=== PATIENT | female | born 1995 | race Hispanic/Latino ===

== ENCOUNTER 2016-09-15 01:42 | Inpatient (IN) ==
[2016-09-15] MEDS ORDERED: PEPCID PO ONE (02:36)
[2016-09-15] MEDS ORDERED: REGLAN PO ONE (02:36)
[2016-09-15] MEDS ORDERED: ZOFRAN IV PRN (02:36)
[2016-09-15] MEDS ORDERED: PEPCID PO PRN (02:36)
[2016-09-15] MEDS ORDERED: LR 1,000 ML IV SCH (02:36)
[2016-09-15] MEDS ORDERED: TYLENOL PO PRN (02:36)
[2016-09-15] MEDS ORDERED: STADOL IV PRN (02:36)
[2016-09-15] MEDS ORDERED: PEPCID IV PRN (02:36)
[2016-09-15] MEDS ORDERED: KEFZOL 1 GM/D5W 1 GM/50 ML IVPB IV PRN (02:36)
[2016-09-15 02:40] LABS: MANUAL DIFF NEEDED? NO
[2016-09-15 02:42] LABS: URINE SOURCE VOIDED
[2016-09-15] MEDS ORDERED: SODIUM CHLORIDE 0.9% INJ SCH (02:45)
[2016-09-15 02:48] LABS: BASO% 0.3 % (0.0-0.8); EOS# 0.05 X1000 (0.0-0.7); EOS% 0.5 % (0.0-10.0); HEMATOCRIT 30.6 % (37.0-47.0); IMM GRAN# 0.09 X1000 (0.0-0.04); IMM GRAN% 0.8 % (0.0-0.5); LYMPH# 2.32 X1000 (1.2-3.4); LYMPH% 21.1 % (20.5-51.1); MCH 25.2 PG (27-31); MCHC 32.7 g/dL (33-37); MCV 77.1 FL (81-99); MONO# 0.84 X1000 (0.11-0.59); MONO% 7.7 % (1.7-9.3); MPV 10.2 FL (7.4-10.4); NEUT% 69.6 % (42.2-75.2); PLT 293 X1000 (130-400); RBC 3.97 XMIL (4.2-5.4)
[2016-09-15 02:54] LABS: BILIRUBIN URINE NEGATIVE (NEGATIVE); BLOOD URINE 2+ (NEGATIVE); CLARITY CLEAR (CLEAR); COLOR YELLOW; GLUCOSE URINE NEGATIVE (NEGATIVE); LEUKOCYTES URINE NEGATIVE (NEGATIVE); NITRITE URINE NEGATIVE (NEGATIVE); PROTEIN URINE NEGATIVE (NEGATIVE); UR AMPHETAMINES QUAL NONE DETECTED (NONE DETECT); UR BARBITUATES QUAL NONE DETECTED (NONE DETECT); UR BENZODIAZEPIN QUAL NONE DETECTED (NONE DETECT); UR CANNABINOIDS QUAL NONE DETECTED (NONE DETECT); UR COCAINE QUAL NONE DETECTED (NONE DETECT); UR MDMA QUAL NONE DETECTED (NONE DETECT); UR METHADONE QUAL NONE DETECTED (NONE DETECT); UR METHAMPHETAMINE QUAL NONE DETECTED (NONE DETECT); UR OPIATES QUAL NONE DETECTED (NONE DETECT); UR OXYCODONE QUAL NONE DETECTED (NONE DETECT); UR PCP QUAL NONE DETECTED (NONE DETECT); UR TCA QUAL NONE DETECTED (NONE DETECT); UROBILINOGEN URINE NORMAL
[2016-09-15] MEDS ORDERED: SODIUM CHLORIDE 0.9% INJ PRN (03:24)
[2016-09-15] MEDS ORDERED: PHENERGAN IV PRN (03:24)
[2016-09-15 03:38] LABS: RAPID HIV PRESUMPTIVE NEGATIVE; RPR NON-REACTIVE (NONREACTIVE)
[2016-09-15] MEDS ORDERED: AMPICILLIN 2 GM/NS 2 GM/100 ML IVPB IV ONE (04:00)
[2016-09-15] MEDS ORDERED: PITOCIN 30 UNITS/LR 30 UNITS/500 ML IV.SOLN IV SCH (07:00)
[2016-09-15] MEDS ORDERED: AMPICILLIN 1 GM/NS 1 GM/50 ML IVPB IV SCH (08:00)
[2016-09-15] MEDS ORDERED: FENTANYL-BUPIV-NS 2 MCG-0.1% 200 ML EPIDURAL PRN (08:14)
[2016-09-15] MEDS ORDERED: XYLOCAINE-MPF 1% INJ ONE (08:15)
[2016-09-15] MEDS ORDERED: PERCOCET-10 PO PRN (12:03)
[2016-09-15] MEDS ORDERED: XYLOCAINE-MPF 1% INJ PRN (12:03)
[2016-09-15] MEDS ORDERED: HYDROXYZINE IM PRN (12:03)
[2016-09-15] MEDS ORDERED: BOOSTRIX VACCINE IM ONE (12:03)
[2016-09-15] MEDS ORDERED: AMBIEN PO PRN (12:03)
[2016-09-15] MEDS ORDERED: PITOCIN 30 UNITS/LR 30 UNITS/500 ML IV.SOLN IV ONE (12:03)
[2016-09-15] MEDS ORDERED: HYDROXYZINE PO PRN (12:03)
[2016-09-15] MEDS ORDERED: M-M-R II VACCINE SUBQ ONE (12:03)
[2016-09-15] MEDS ORDERED: CYTOTEC PO PRN (12:03)
[2016-09-15] MEDS ORDERED: PERI MEDS (DERMOPLAST/NUPERCAINAL/TUCKS) MISC PRN (12:03)
[2016-09-15] MEDS ORDERED: PITOCIN 20 UNITS/LR 20 UNITS/1,000 ML IV.SOLN IV SCH (12:03)
[2016-09-15] MEDS ORDERED: MINERAL OIL PO PRN (12:03)
[2016-09-15] MEDS ORDERED: PITOCIN IM PRN (12:03)
[2016-09-15] MEDS ORDERED: BENADRYL PO PRN (12:03)
[2016-09-15] MEDS ORDERED: BENADRYL IV PRN (12:03)
[2016-09-15] MEDS ORDERED: PERCOCET-5 PO PRN (12:03)
[2016-09-15] MEDS ORDERED: NORCO-10 PO PRN (12:03)
--- NOTE | 2016-09-15 15:50 | OPERATIVE NOTE ---
PROCEDURE DATE: 09/15/2016 DELIVERY PHYSICIAN: Jose Stahl MD TYPE OF DELIVERY: Spontaneous controlled vaginal delivery. ANESTHESIA: Epidural. FINDINGS: At 11:11, a 6 pound 13 ounce male infant was delivered in occiput anterior presentation. Apgars were 9 at 1 minute and 10 at 5 minutes. SUMMARY: Yennifer Stein is a 21-year-old 3, para 2-0-0-2. She has had no care. She presented reporting spontaneous rupture membranes that occurred on 09/14/2016, approximately 2200 hours. She was term by ultrasound performed at [facility]. She was not dilated upon admission. She was admitted. Group B strep prophylactic antibiotics were begun as we have not know her status. Blood work was performed showing her blood type is O positive. Rubella is pending. Hepatitis is pending. RPR and HIV are presumptively negative. IV Pitocin was begun to augment labor. She progressed to labor rapidly. She received an epidural for labor pain management. She became complete and began pushing. She quickly crowned. At that point, she was placed in dorsal lithotomy position and a spontaneous controlled vaginal delivery occurred. Once the head was delivered, the oropharynx was bulb suctioned, shoulders and body delivered without complications. The cord was clamped and cut, the was handed to the nurses for further care and evaluation. Cord blood was obtained. Placenta was spontaneously delivered and was intact. There were no cervical or vaginal lacerations, except for a small midline tear which was repaired using 2-0 Vicryl suture. Blood loss approximately 200 mL. There were no complications. Patient remained in the LDR recovering without difficulty. cc: MD Edd Orellana MD
[2016-09-15 16:37] LABS: RUBELLA SCREEN IMMUNE (IMMUNE)
[2016-09-15] MEDS: PERICOLACE PO SCH (20:07)
[2016-09-15] MEDS: MOTRIN PO PRN (20:07)
[2016-09-16 06:38] LABS: HEMATOCRIT 28.5 % (37.0-47.0); MCH 24.7 PG (27-31); MCHC 31.6 g/dL (33-37); MCV 78.1 FL (81-99); MPV 10.5 FL (7.4-10.4); RBC 3.65 XMIL (4.2-5.4)
[2016-09-16 10:49] LABS: HIV ANTIBODY SCREEN SEE COMMENTS
[2016-09-16 10:50] LABS: HEPATITIS B SURFACE ANTIGEN SEE COMMENTS
[2016-09-16] MEDS: MOTRIN PO PRN (19:56)
[2016-09-16] MEDS: PERICOLACE PO SCH ×2 (19:56→20:00)
[2016-09-16] MEDS: NORCO-5 PO PRN (19:56)
[2016-09-17] MEDS: NORCO-5 PO PRN (03:51)
[2016-09-17] MEDS: MOTRIN PO PRN (03:52)
[2016-09-17 09:39] VITALS: BP 119/53
== END 2016-09-17 15:00 | disposition home or self-care (01) ==
LOC: P.OPLD 01:42 → P.LD 01:46 → P.WC 14:36
PROVIDERS: ADMIT Obstetrics & Gynecology; ATTEND Obstetrics & Gynecology